=== PATIENT | male | born 1935 | race Caucasian/White ===

== ENCOUNTER → 2016-09-22 | Day surgery (SDC) | payer MEDICARE, BC ==
[~2016-09-22] MED LIST: ACETAMINOPHEN 1000 MG/100 ML VIAL IV ONE; BUPIVACAINE/EPINEPHRINE 0.25% PF 10 ML VIAL ONE; KETOROLAC TROMETHAMINE 30 MG/ML (IVP) VIAL IV PUSH ONE; LACTATED RINGER'S 1000 ML INJ 1,000 ML ONE; METHYLERGONOVINE MALEATE 0.2 MG/ML VIAL ONE; MIDAZOLAM HCL 2 MG/2 ML VIAL ONE; ONDANSETRON HCL 4 MG/2 ML VIAL IV PUSH ONE; PROPOFOL 200 MG/20 ML AMP IV ONE; SODIUM CHLOR 0.9% 250 ML BAG IV ONE; SODIUM CHLOR 0.9% 250 ML INJ 250 ML IV ONE; SODIUM CHLORIDE 0.9% IRR BTL 1,000 ML IRRIGATION ONE; SODIUM CHLORIDE 0.9% SOLN 1000 ML BTL ONE; VANCOMYCIN HCL 1000 MG VIAL ONE; ceFAZolin INJ 1,000 MG VIAL ONE
--- NOTE | 2016-09-22 12:37 | MP ---
cc: HERI JO M.D., MARK DATE OF SURGERY: 09/22/2016 PROCEDURE 1. Bilateral laparoscopic inguinal hernia repair with mesh. 2. 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 PREOPERATIVE DIAGNOSIS Bilateral symptomatic inguinal hernias. POSTOPERATIVE DIAGNOSIS Bilateral symptomatic inguinal hernias. ANESTHESIA LMA. SURGEON Dr. Jo. WHEEL PRESS CLERK Doretha Neville, KIN ESTIMATED BLOOD LOSS Less than 30 mL. FLUIDS 1000 mL crystalloid. COMPLICATIONS None. DRAINS None. 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 The LCAC OPERATOR was required to be present throughout the entire procedure. Her presence was required to assist in exposure, retraction and resection of important structures as well as visualization. She was present for the entirety of the procedure. PROCEDURE The patient was taken to the operating room and placed on the operating table in the supine position. The arms were tucked and the abdomen was shaved, prepped and draped. Time-out was taken confirming the correct patient, site and procedures to be performed. Incision was made in the umbilicus and carried down through the fascia sharply. The peritoneal cavity was directly visualized. A 12 mm balloon trocar was inserted and the balloon inflated. The abdomen was insufflated. 10 mm 30 degree lens was then inserted. Left and right 12 mm trocars were placed under direct vision uneventfully. Attention was turned to the left side first and the peritoneum was incised and pulled downward. The underlying tissues were dissected free from the hernia sac and a fairly sizeable lipoma of the spermatic cord was noted. This was stripped off of the cord structures and utilizing the harmonic scalpel was divided off of the cord structures with minimal blunt dissection and removed via the 12-mm trocar site on the left. The patient's hernia defect appeared to be both a direct and indirect hernia and was best felt to be repaired by dividing the epigastric vessels and placing the mesh flat across both defects. The epigastric vessels were divided with the harmonic scalpel and a 6 x 6 inch piece of ultra Pro mesh was trimmed in half and then had the corners rounded and the mesh slit longitudinally. The mesh was placed into the pelvis and the inferior leaf was brought under the spermatic cord structures. Dissection had been carried out exposing Robert's ligament and the anterior abdominal wall structures, removing all fatty material. The mesh was fixed into place on Robert's ligament with 4.0 mm reyes and then to the anterior abdominal wall with 4.8 mm reyes. Laterally the mesh was reattached with two 4.8 mm reyes, creating a new internal ring to minimize the risk of recurrence. With the entire defect completely overlapped with mesh, attention was then turned to the right side. The peritoneum was incised as before and peeled downward with the hernia sac peeled off of the spermatic cord structures. This side had an indirect hernia; however there was lipoma present on the cord on this side as well. This was stripped off and passed off the table. A harmonic scalpel was used for some of the dissection as well. The epigastric vessels were divided on this side as well and window created behind the spermatic cord structures. Robert's ligament was cleaned off and the patient was noted to have a primarily indirect hernia but there was a small direct component as well. The remaining piece of mesh was placed into the pelvis and the inferior leaf brought under the spermatic cord structures. The mesh was fixed to Robert's ligament with 4.0 mm reyes and then to the anterior abdominal wall with 4.8 mm reyes. The mesh was re-closed laterally with two 4.8 mm reyes, creating a new internal ring. When this was completed, the abdomen was partially desufflated with decreased insufflation pressure of 11 and the peritoneum was reapproximated on both sides with 4.8 mm reyes. When this was completed, insufflation was discontinued and the left and right lower quadrant trocars were removed under direct vision. No bleeding was noted from the trocar sites. The laparoscope and umbilical port were removed. The fascia was closed at all three sites with 0 Vicryl suture in a either interrupted or [id number] fashion. Both a simple interrupted and [id number] 0 Vicryl was used to close the umbilicus. A total of 60 ccs of 0.25% Marcaine with epinephrine was injected into the trocar sites as well as both groins. The skin was closed at all trocar sites with 4-0 Vicryl in an interrupted buried fashion. All trocar sites were dressed with Steri-Strips. A jockstrap was applied and the patient was taken back to the recovery room in stable condition. He tolerated the procedure well. MD YAZMIN Singleton/TLL /12:03 PM /12:24 PM
== END | disposition home or self-care (01) ==
LOC: ESDC 08:18
PROVIDERS: ATTEND Surgery Trauma Surgery
DX: K40.20 Bilateral inguinal hernia, without obstruction or gangrene, not specified as recurrent (principal); D17.6 Benign lipomatous neoplasm of spermatic cord
CPT/HCPCS: 00840; 49650; 88304; C1781; J0131; J0690; J1885; J2405; J3010; J3370; J7050; J2210; J2250; J7120